=== PATIENT | female | born 1980 | race Caucasian/White ===

== ENCOUNTER 2016-10-23 05:40 | Emergency (ER) | payer SELFPAY ==
[~2016-10-23] VITALS: Ht 165.1 cm; Wt 73.0 kg
[2016-10-23] MEDS ORDERED: OMEPRAZOLE20 MG PO (05:49)
[2016-10-23] MEDS ORDERED: ACETAMINOPHEN325 M2 PO (05:51)
[2016-10-23] MEDS ORDERED: AMOXICILLIN500 MG PO (06:02)
== END 2016-10-23 06:09 | disposition home or self-care (01) ==
LOC: ED 05:40
DX: K08.89 Other specified disorders of teeth and supporting structures (principal); K21.9 Gastro-esophageal reflux disease without esophagitis; Z90.89 Acquired absence of other organs; Z90.49 Acquired absence of other specified parts of digestive tract; Z88.1 Allergy status to other antibiotic agents; Z88.5 Allergy status to narcotic agent; Z88.8 Allergy status to other drugs, medicaments and biological substances; Z79.899 Other long term (current) drug therapy
CPT/HCPCS: 99282